=== PATIENT | male | born 1950 | race Caucasian/White ===

== ENCOUNTER 2022-12-20 08:04 | Outpatient (CLI) | payer MEDICARE, OTHER ==
[2022-12-20] MEDS ORDERED: EPINEPHrine 1 MG/ML AMP ONE (09:45)
[2022-12-20] MEDS ORDERED: Sodium Chloride 0.9% (PF) 10 ML VIAL ONE (09:45)
[2022-12-20] MEDS ORDERED: Lidocaine 1% PF 5 ML VIAL ONE (09:45)
[2022-12-20] MEDS ORDERED: Iopamidol 300 61% 50 ML VIAL FS ONE (09:45)
== END 2022-12-20 08:05 | disposition home or self-care (01) ==
LOC: RAD 08:04
PROVIDERS: ATTEND Orthopaedic Surgery
DX: S46.011A Strain of muscle(s) and tendon(s) of the rotator cuff of right shoulder, initial encounter (principal)
CPT/HCPCS: 23350; J0171; Q9967

== ENCOUNTER 2023-05-20 12:01 | Outpatient (CLI) | payer MEDICARE, OTHER ==
[2023-05-20 13:01] LABS: Hemoglobin 14.1 g/dL (13.5-17.5); Mean Corpuscular HGB CONC 32.9 g/dL (32.0-36.0); Mean Corpuscular Hemoglobin 29.4 pg (27.0-33.0); Mean Corpuscular Volume 89.4 fl (81.2-95.1); Mean Platelet Volume 11.5 fl (7.4-10.4); Platelet Count 129 10x3/uL (150-450); RBC Distribution Width 13.2 % (11.5-14.5); Red Blood Cell (RBC) Count 4.79 10x6/uL (4.32-5.72); White Blood Cell (WBC) Count 5.9 10x3/uL (3.5-10.5)
[2023-05-20 13:02] LABS: #Eosinphils 0.1 10x3/uL (0.0-0.5); #Monocytes 0.5 10x3/uL (0.0-1.1); #Neutrophils 3.6 10x3/uL (1.5-8.4); %Basophils 0.5 % (0.0-2.0); %Eosinophils 2.1 % (0.0-6.0); %Lymphocytes 30.9 % (18.0-47.0); %Monocytes 7.6 % (0.0-10.0); %Neutrophils 58.6 % (40.0-75.0)
[2023-05-20 13:27] LABS: Anion Gap 15 mmol/L (10-20); BUN (Urea Nitrogen) 25 mg/dL (8.4-25.7); Calc. Creatinine Clearance 0 mL/min (70-130); Calcium 9.3 mg/dL (7.8-10.44); Carbon Dioxide 22 mmol/L (23-31); Chloride 106 mmol/L (98-107); Estimated GFR 46; Glucose 176 mg/dL (83-110); Potassium 4.4 mmol/L (3.5-5.1); Sodium 139 mmol/L (136-145)
== END 2023-05-20 12:02 | disposition home or self-care (01) ==
LOC: LABBT 12:01
PROVIDERS: ATTEND Orthopaedic Surgery
DX: Z01.812 Encounter for preprocedural laboratory examination (principal); M19.011 Primary osteoarthritis, right shoulder
CPT/HCPCS: 80048; 85025

== ENCOUNTER 2025-07-08 05:54 | Day surgery (SDC) | payer MEDICARE, OTHER ==
[2025-07-06 09:42] VITALS: BMI 29.7
[2025-07-08] MEDS ORDERED: CEFAZOLIN 2 GM VIAL ONE (06:55)
[2025-07-08] MEDS ORDERED: PROPOFOL 40 ML ONE (07:30)
== END 2025-07-08 09:10 | disposition home or self-care (01) ==
LOC: SDC 05:54
PROVIDERS: ATTEND Orthopaedic Surgery
PROC: 01N54ZZ Release Median Nerve, Percutaneous Endoscopic Approach (ICD-10-PCS; principal; 2025-07-08)
PROC: 3E0T3BZ Introduction of Anesthetic Agent into Peripheral Nerves and Plexi, Percutaneous Approach (ICD-10-PCS; 2025-07-08)
DX: G56.02 Carpal tunnel syndrome, left upper limb (principal); G56.22 Lesion of ulnar nerve, left upper limb; M72.0 Palmar fascial fibromatosis [Dupuytren]; M18.0 Bilateral primary osteoarthritis of first carpometacarpal joints; M19.041 Primary osteoarthritis, right hand; M19.042 Primary osteoarthritis, left hand; I25.10 Atherosclerotic heart disease of native coronary artery without angina pectoris; E11.9 Type 2 diabetes mellitus without complications; E78.00 Pure hypercholesterolemia, unspecified; Z95.1 Presence of aortocoronary bypass graft; Z95.0 Presence of cardiac pacemaker; Z96.653 Presence of artificial knee joint, bilateral; Z88.1 Allergy status to other antibiotic agents; Z88.8 Allergy status to other drugs, medicaments and biological substances; Z79.82 Long term (current) use of aspirin; Z79.899 Other long term (current) drug therapy
CPT/HCPCS: 29848; 64415; 82962; A6223; J0166; J0665; J2250; J2704; J3010; 36416